=== PATIENT | male | born 1960 | race African-American/Black ===

== ENCOUNTER 2017-07-24 12:58 | Inpatient (IN) | payer OTHER ==
[2017-07-24] MEDS ORDERED: Nitroglycerin 2% Ointment 1 INCH/1 GM Packet ONE (13:15)
[2017-07-24] MEDS ORDERED: Fentanyl 100 MCG/2 ML VIAL ONE (13:15)
[2017-07-24 14:42] LABS: Troponin I 0.631 ng/mL (< 0.028)
--- NOTE | 2017-07-24 15:11 | HP ---
DATE OF SERVICE: 07/24/2017 HISTORY OF PRESENT ILLNESS: Mr. Campos is a 56 years old black man. Last night, he started experim enting some palpitation. A few minutes later, he had chest pain which was located in the retrosterna l area with no radiation, was accompanied by shortness of breath and also some diaphoresis. The ches t pain persisted until this morning and he woke up without it, sometimes later he started experimenti ng chest pain again. The chest pain this time lasted about 2 hours until he came to the ER and was g iven nitroglycerin to which it responded. He denies any previous history of heart disease, denies hy pertension, denies diabetes. As a matter of fact, he does not have significant past medical history. PAST SURGICAL HISTORY: Unremarkable. ALLERGIES: He does not have any known allergy. SOCIAL HISTORY: He is an active smoker and he claims that he has been smoking 1 pack of cigarette a day for the last few years. He denies ETOH abuse. He denies drug abuse. FAMILY HISTORY: Reviewed and is not contributory. HOME MEDICATIONS: Not available for identification at this time; however, he claims that he was takmaría clark some medications for schizophrenia at home. REVIEW OF SYSTEMS: CONSTITUTIONAL: He denies any fever, denies any weakness. HEENT: No headache, no ocular pain, no sore throat, no rhinorrhea, no earache, no epistaxis. NECK: No neck pain, no neck stiffness. CARDIOVASCULAR: Admits to shortness of breath, chest pain, and palpitation as mentioned earlier. PULMONARY: Dry cough on and off. GASTROINTESTINAL: No nausea, no vomiting, no diarrhea, no abdominal pain. GENITOURINARY: No dysuria, no hematuria. ENDOCRINOLOGY: No heat or cold intolerance. No polyuria, polydipsia or polyphagia. MUSCULOSKELETAL: No arthritis, no myalgia. ALLERGIES: No hayfever. HEMATOLOGY: No abnormal bleeding, no ecchymosis. LYMPHATICS: No palpable lymphadenopathy, no painful lymphadenopathy. SKIN: No rash, no itching. NEUROLOGICAL: No seizure. PSYCHIATRIC: As mentioned earlier, he does have a history of schizophrenia. PHYSICAL EXAMINATION: GENERAL: At the current time, he is alert, oriented, in no distress. LATEST VITAL SIGNS: Show a temperature of 100, pulse rate 90, respiratory rate 18 and blood pressure 129/88. HEENT: His head is normocephalic and atraumatic. Both his pupils are equal, reactive. Ears and nos e normal. Oral mucosa is moist. Pharyngeal area is clear with no exudate, no hyperemia. NECK: Supple. There is no distention of the jugular vein. No lymphadenopathy felt. Thyroid gland not palpable. There is no carotid bruit. CHEST: Symmetrical with regular S1, S2. LUNGS: Clear. ABDOMEN: Soft. Bowel sounds are heard. Could not appreciate any organomegaly. LIMBS: Show no edema. NEUROLOGIC: He moves all extremities. LABORATORY DATA: Troponin from an out of facility where he presented earlier was noticed to be 45. Repeat troponin is in progress. ASSESSMENT AND PLAN: This is 56 years old black man with no significant past medical history; howeve r, heavy smoker, schizophrenia, who came in with chest pain and palpitation, found to have an elevate d troponin consistent with non-ST elevation myocardial infarction. Cardiology consult was called. T he patient is being admitted, treated for non-ST elevation myocardial infarction. He is being admitt ed to telemetry.
[2017-07-24] MEDS ORDERED: Ondansetron ODT 4 MG TAB SL PRN (17:02)
[2017-07-24] MEDS ORDERED: Ondansetron HCl/PF 4 MG/2 ML Vial IVP PRN ×2 (17:02→17:22)
[2017-07-24 17:18] VITALS: BMI 39.4
[2017-07-24 17:19] LABS: Critical Call Chem Troponin I RESULT DECREASING; Troponin I 0.533 ng/mL (< 0.028)
[2017-07-24] MEDS ORDERED: Morphine 4 MG/ML VIAL SLOW IVP PRN (17:22)
[2017-07-24] MEDS ORDERED: Nitroglycerin 0.4 MG TAB (25 Tab Bottle) PO PRN (17:22)
[2017-07-24 17:38] LABS: #Monocytes 0.7 thou/uL (0.11-0.59); #Neutrophils 7.5 thou/uL (1.40-6.50); %Basophils 0.2 % (0.0-1.0); %Eosinophils 0.2 % (0.0-10.0); %Monocytes 7.3 % (0.0-10.0); %Neutrophils 81.3 % (42.0-75.0); Hemoglobin 16.8 g/dL (14.0-18.0); Mean Corpuscular HGB CONC 33.5 g/dL (32.0-36.0); Mean Corpuscular Hemoglobin 28.1 pg (27.0-31.0); Mean Corpuscular Volume 83.7 fl (80.0-94.0); Mean Platelet Volume 6.5 fL (7.4-10.4); Platelet Count 225 thou/uL (130-400); RBC Distribution Width 13.1 % (11.5-14.5); Red Blood Cell (RBC) Count 5.99 mill/uL (4.70-6.10); White Blood Cell (WBC) Count 9.2 thou/uL (4.8-10.8)
[2017-07-24 18:00] LABS: Anion Gap 9 mmol/L (10-20); BUN (Urea Nitrogen) 12 mg/dL (8.4-25.7); Calc. Creatinine Clearance 140 mL/min (70-130); Calcium 8.8 mg/dL (7.8-10.44); Carbon Dioxide 31 mmol/L (22-29); Chloride 100 mmol/L (98-107); Estimated GFR-MDRD Greater than 90; Glucose 100 mg/dL (70-105); Potassium 3.8 mmol/L (3.5-5.1); Sodium 136 mmol/L (136-145)
[2017-07-24] MEDS: Atorvastatin Calcium 40 MG TAB PO SCH (20:53)
[2017-07-24] MEDS: Metoprolol Tartrate 25 MG TAB PO SCH (20:54)
[2017-07-24] MEDS: Enoxaparin Sodium 120 MG/0.8 ML SYRINGE SC SCH (20:56)
[2017-07-24] MEDS ORDERED: Acetaminophen 325 MG TAB PO PRN (22:08)
[2017-07-24] MEDS ORDERED: Perphenazine 2 MG TAB PO SCH (23:45)
[2017-07-24] MEDS ORDERED: traZODone HCl 50 MG TAB PO SCH (23:45)
[2017-07-25 05:39] LABS: Cardiac Risk 5.5 (Less than 4.5)
--- NOTE | 2017-07-25 12:43 | PDOC.PN ---
- Subjective Encounter Start Date: 07/25/17 Encounter Start Time: 14:28 cc: chest pain sub: pt is chets pain free, deneis dyspnea - Objective Vital Signs & Weight: Vital Signs (12 hours) Temp Pulse Resp BP BP Pulse Ox 07/25/17 10:50 99.4 F 86 19 115/66 96 07/25/17 08:19 99.8 F H 93 16 128/62 128/62 96 07/25/17 05:29 94 L 07/25/17 04:00 99.2 F 95 20 107/64 100 Weight Weight 267 lb 6.4 oz I&O: 07/24/17 07/25/17 07/26/17 06:59 06:59 06:59 Intake Total 1080 Output Total 280 Balance 800 Result Diagrams: 07/24/17 17:31 07/24/17 17:31 Phys Exam - Physical Examination Constitutional: NAD HEENT: moist MMs Neck: no JVD Respiratory: no wheezing, no rales, no rhonchi, clear to auscultation bilateral Cardiovascular: RRR, no significant murmur, no rub no gallop Gastrointestinal: soft, non-tender Musculoskeletal: no edema Neurological: non-focal, moves all 4 limbs Psychiatric: normal affect Skin: no rash Dx/Plan - Plan Pt is 56 yrs old male now admitted to hospital due to chest pain 1. Chest pain + NSTEMI: Will consult cardio to evaluate patient Continue aspirin and statin On lovenox 120mg subq q12hrs PRN pain meds Monitor respiratory status closely 2. H/O Schizophrenia: Continue home meds. 3. GI prophylaxis: PPI Case d/w pt & RN
[2017-07-25] MEDS: Metoprolol Tartrate 25 MG TAB PO SCH ×2 (13:12→21:48)
[2017-07-25] MEDS: Perphenazine 2 MG TAB PO SCH ×3 (13:12→21:49)
[2017-07-25] MEDS: Enoxaparin Sodium 120 MG/0.8 ML SYRINGE SC SCH (13:12)
[2017-07-25] MEDS: Aspirin 325 MG TAB PO SCH (14:07)
[2017-07-25] MEDS: Escitalopram Oxalate 20 mg Tablet PO SCH (14:07)
[2017-07-25] MEDS ORDERED: Communication Order-Pharmacy FS SCH (21:00)
[2017-07-25] MEDS: traZODone HCl 50 MG TAB PO SCH (21:48)
[2017-07-25] MEDS: Atorvastatin Calcium 40 MG TAB PO SCH (21:49)
--- NOTE | 2017-07-26 00:20 | CON ---
DATE OF CONSULTATION: 07/25/2017 HISTORY: Antwon Campos is a 56-year-old black male with history of anxiety, depression, bipolar and schizophrenia. He also possibly has history of seizure disorder. He apparently "fell out" and then woke up with chest pain. He went to the emergency room in [place] with his pain accompanied by shortness of breath, some diaphoresis. He was given sublingual nitroglycerin and the pain resolved. He denies have any recurrence of the pain since then. He was transferred here for further evaluation. PAST MEDICAL HISTORY: Denies history of hypertension, diabetes, or hypercholesterolemia, history of seizure disorder. MEDICATIONS: Perphenazine 8 mg t.i.d., trazodone 50 at bedtime, escitalopram 20 mg q.a.m. ALLERGIES: None. OPERATIONS: None. SOCIAL HISTORY: He smokes 1 pack per day. Does not drink or use drugs. FAMILY HISTORY: Negative for coronary artery disease. REVIEW OF SYSTEMS: Twelve point review of systems otherwise unremarkable. PHYSICAL EXAMINATION: VITAL SIGNS: 126/71, pulse of 80. HEENT: PERRL. NECK: Supple. LUNGS: Chest is clear. CARDIAC: S1, S2 normal, without any S3, S4 or murmurs. Carotid upstrokes normal, without bruits. ABDOMEN: Normal bowel sounds, without tenderness, organomegaly. EXTREMITIES: Revealed no clubbing, cyanosis, or edema. NEUROLOGIC: Grossly intact. LABORATORY AND X-RAY FINDINGS: EKG revealed normal sinus rhythm and is unremarkable. On the monitor, though he appears to have inverted T waves and another EKG will be ordered. Hemoglobin 16.8, hematocrit 50.1, white count 9200 , platelets 225,000. Sodium 136, potassium 3.8, chloride 100, carbon dioxide 31 , BUN 12, creatinine 1.01. Troponin I 0.631, BNP 140.5. Cholesterol 133, triglycerides 138, HDL 24, LDL 81. IMPRESSION: 1. Rly-RE-[id number] elevation myocardial infarction. 2. Smoker. 3. Elevated cholesterol in someone with coronary artery disease. 4. bipolar disorder. 5. Schizophrenia. 6. Seizure disorder. PLAN: The situation was discussed with the patient. Recommend he undergo cardiac catheterization. Risks of this have been discussed including , myocardial infarction, dye reaction, vascular injury, CVA, transfusion, limb loss, renal loss, etc. Also, risk of intervention with PTCA and stent placement were discussed including , myocardial infarction, emergent CABG, restenosis, stent thrombosis, vessel perforation, etc. He complains about bleeding gums and therefore, I would only place a bare metal stent. I am also somewhat concerned about his compliance. ANGI
[2017-07-26 06:01] LABS: Anion Gap 9 mmol/L (10-20); BUN (Urea Nitrogen) 16 mg/dL (8.4-25.7); Calc. Creatinine Clearance 175 mL/min (70-130); Calcium 8.9 mg/dL (7.8-10.44); Carbon Dioxide 25 mmol/L (22-29); Chloride 109 mmol/L (98-107); Estimated GFR-MDRD Greater than 90; Glucose 110 mg/dL (70-105); Potassium 4.3 mmol/L (3.5-5.1); Sodium 139 mmol/L (136-145)
[2017-07-26 06:09] LABS: Band 1 % (5-11); Eosinophils 1 % (0-10); Hemoglobin 15.4 g/dL (14.0-18.0); Lymphocytes 25 % (21-51); MDiff Complete? YES; Mean Corpuscular HGB CONC 32.6 g/dL (32.0-36.0); Mean Corpuscular Hemoglobin 27.5 pg (27.0-31.0); Mean Corpuscular Volume 84.2 fl (80.0-94.0); Monocytes 18 % (0-10); Neutrophil 51 % (42-75); PLT Morphology Comment Appears Adequate; Platelet Count 206 thou/uL (130-400); RBC Morphology Normal; Reactive Lymphocytes 4 % (0-10); White Blood Cell (WBC) Count 5.3 thou/uL (4.8-10.8)
[2017-07-26] MEDS: Perphenazine 2 MG TAB PO SCH ×3 (06:22→20:43)
[2017-07-26] MEDS: Escitalopram Oxalate 20 mg Tablet PO SCH (06:24)
[2017-07-26] MEDS: Aspirin 325 MG TAB PO SCH (06:24)
[2017-07-26] MEDS: Metoprolol Tartrate 25 MG TAB PO SCH ×2 (06:25→20:36)
[2017-07-26] MEDS ORDERED: Heparin 10,000 UNITS/1 ML VIAL ONE (06:33)
[2017-07-26] MEDS ORDERED: Lidocaine 1% (PF) 30 ML VIAL ONE (06:41)
[2017-07-26] MEDS ORDERED: Midazolam HCl 2 mg/2 ml Vial ONE (07:04)
[2017-07-26] MEDS ORDERED: Fentanyl 100 MCG/2 ML VIAL ONE (07:05)
[2017-07-26] MEDS ORDERED: Nitroglycerin 100MG/250ML BOT 250 ML ONE (07:28)
[2017-07-26] MEDS ORDERED: Bivalirudin 250 MG VIAL ONE (07:28)
[2017-07-26] MEDS ORDERED: Clopidogrel Bisulfate 300 MG TAB ONE (07:28)
[2017-07-26] MEDS ORDERED: Iopamidol 370 76% 100 ML VIAL ONE (08:49)
[2017-07-26] MEDS ORDERED: Iopamidol 370 76% 50 ML VIAL FS ONE (08:49)
[2017-07-26] MEDS: Sodium Chloride 0.9% 1,000 ML IV SCH ×2 (09:09→15:28)
--- NOTE | 2017-07-26 16:26 | PDOC.PN ---
- Subjective Encounter Start Date: 07/26/17 Encounter Start Time: 15:00 Subjective: pt up in bed no complains - Objective Vital Signs & Weight: Vital Signs (12 hours) Temp Pulse Resp BP Pulse Ox 07/26/17 15:41 99.1 F 68 18 121/60 96 07/26/17 11:25 97.9 F 69 18 127/75 97 Weight Weight 267 lb 6.4 oz I&O: 07/25/17 07/26/17 07/27/17 06:59 06:59 06:59 Intake Total 1080 750 624 Output Total 280 400 875 Balance 800 350 -251 Result Diagrams: 07/26/17 05:15 07/26/17 05:15 Phys Exam - Physical Examination HEENT: PERRLA Neck: no nodes, no JVD Respiratory: no wheezing, no rales Cardiovascular: RRR, no significant murmur Gastrointestinal: soft, non-tender Musculoskeletal: no edema, pulses present (right groin site intact) Neurological: non-focal, normal sensation Lymphatic: no nodes Psychiatric: normal affect Dx/Plan - Plan * . Pt is 56 yrs old male now admitted to hospital due to chest pain 1. Chest pain + NSTEMI: pt underwent cardiac cath with bare metal stent to LAD Continue aspirin/plavix and statin 2. H/O Schizophrenia: Continue home meds. 3. GI prophylaxis: PPI pt will be discharged in am if ok with cardiology Review of Systems - Review of Systems Eyes: negative: Pain, Vision Change, Conjunctivae Inflammation, Eyelid Inflammation, Redness, Other ENT: negative: Ear Pain, Ear Discharge, Nose Pain, Nose Discharge, Nose Congestion, Mouth Pain, Mouth Swelling, Throat Pain, Throat Swelling, Other Respiratory: negative: Cough, Dry, Shortness of Breath, Hemoptysis, SOB with Excertion, Pleuritic Pain, Sputum, Wheezing Cardiovascular: negative: chest pain, palpitations, orthopnea, paroxysmal nocturnal dyspnea, edema, light headedness, other Gastrointestinal: negative: Nausea, Vomiting, Abdominal Pain, Diarrhea, Constipation, Melena, Hematochezia, Other - Medications/Allergies Allergies/Adverse Reactions: Allergies Allergy/AdvReac Type Severity Reaction Status Date / Time No Known Drug Allergies Allergy Verified 07/24/17 17:02 Medications: Current Medications Acetaminophen (Tylenol) 650 mg PO Q6H PRN PRN Reason: Fever > 101 Last Admin: 07/24/17 22:41 Dose: 650 mg Aspirin (Aspirin) 325 mg PO DAILY [facility] Last Admin: 07/26/17 06:24 Dose: 325 mg Atorvastatin Calcium (Lipitor) 20 mg PO HS [facility] Clopidogrel Bisulfate (Plavix) 75 mg PO DAILY [facility] Escitalopram Oxalate (Lexapro) 20 mg PO QAM [facility] Last Admin: 07/26/17 06:24 Dose: 20 mg Metoprolol Tartrate (Lopressor) 6.25 mg PO BID [facility] Last Admin: 07/26/17 06:25 Dose: 6.25 mg Morphine Sulfate (Morphine) 2 mg SLOW IVP Q4H PRN PRN Reason: Chest Pain Last Admin: 07/24/17 17:53 Dose: 2 mg Nitroglycerin (Nitrostat) 0.4 mg PO Q5MIN PRN PRN Reason: Chest Pain Last Admin: 07/24/17 19:19 Dose: 0.4 mg Ondansetron HCl (Zofran) 4 mg IVP Q6H PRN PRN Reason: Nausea/Vomiting Perphenazine (Trilafon) 8 mg PO TID [facility] Last Admin: 07/26/17 06:22 Dose: 8 mg Sodium Chloride (Flush - Normal Saline) 10 ml IVF Q12HR [facility] Last Admin: 07/26/17 15:28 Dose: Not Given Sodium Chloride (Flush - Normal Saline) 10 ml IVF PRN PRN PRN Reason: Saline Flush Trazodone HCl (Desyrel) 50 mg PO HS [facility] Last Admin: 07/25/17 21:48 Dose: 50 mg
[2017-07-26] MEDS: traZODone HCl 50 MG TAB PO SCH (20:39)
[2017-07-26] MEDS ORDERED: Atorvastatin Calcium 20 MG TAB PO SCH (21:00)
[2017-07-27 06:06] LABS: #Lymphocytes 1.3 thou/uL (1.20-3.40); #Monocytes 0.7 thou/uL (0.11-0.59); #Neutrophils 3.9 thou/uL (1.40-6.50); %Basophils 0.5 % (0.0-1.0); %Eosinophils 0.8 % (0.0-10.0); %Lymphocytes 21.8 % (21.0-51.0); %Monocytes 11.1 % (0.0-10.0); %Neutrophils 65.7 % (42.0-75.0); Hemoglobin 15.8 g/dL (14.0-18.0); Mean Corpuscular HGB CONC 33.2 g/dL (32.0-36.0); Mean Corpuscular Hemoglobin 27.4 pg (27.0-31.0); Mean Corpuscular Volume 82.7 fl (80.0-94.0); Mean Platelet Volume 7.3 fL (7.4-10.4); Platelet Count 225 thou/uL (130-400); RBC Distribution Width 12.9 % (11.5-14.5); Red Blood Cell (RBC) Count 5.74 mill/uL (4.70-6.10)
[2017-07-27 06:30] LABS: ALT (SGPT) 26 U/L (8-55); AST (SGOT) 25 U/L (5-34); Albumin 3.6 g/dL (3.5-5.0); Alkaline Phosphatase 110 U/L (40-150); Anion Gap 9 mmol/L (10-20); BUN (Urea Nitrogen) 13 mg/dL (8.4-25.7); Bilirubin, Total 0.8 mg/dL (0.2-1.2); Calc. Creatinine Clearance 171 mL/min (70-130); Carbon Dioxide 26 mmol/L (22-29); Chloride 106 mmol/L (98-107); Estimated GFR-MDRD Greater than 90; Globulin 3.5 g/dL (2.4-3.5); Glucose 106 mg/dL (70-105); Potassium 4.1 mmol/L (3.5-5.1); Protein, Total 7.1 g/dL (6.0-8.3); Sodium 137 mmol/L (136-145)
--- NOTE | 2017-07-27 08:01 | EKG ---
Test Reason : POST STENT Blood Pressure : / mmHG Vent. Rate : 071 BPM Atrial Rate : 071 BPM P-R Int : 156 ms QRS Dur : 080 ms QT Int : 410 ms P-R-T Axes : 068 096 033 degrees QTc Int : 445 ms Normal sinus rhythm Rightward axis Borderline ECG When compared with ECG of 24-JUL-2017 17:45, (Unconfirmed) Premature supraventricular complexes are no longer Present Confirmed by TANGELA MUELLER ([id number]) on 07/27/2017 8:01:25 AM Referred By: GHULAM Confirmed By:TANGELA MUELLER
[2017-07-27] MEDS ORDERED: Clopidogrel Bisulfate 75 MG TAB PO SCH (09:00)
[2017-07-27] MEDS: Metoprolol Tartrate 25 MG TAB PO SCH (10:03)
[2017-07-27] MEDS: Escitalopram Oxalate 20 mg Tablet PO SCH (10:03)
[2017-07-27] MEDS: Aspirin 325 MG TAB PO SCH (10:05)
[2017-07-27] MEDS: Perphenazine 2 MG TAB PO SCH ×2 (10:05→15:58)
--- NOTE | 2017-07-27 14:20 | PDOC.PN ---
- Subjective Encounter Start Date: 07/27/17 Encounter Start Time: 10:00 Subjective: pt up in bed no complains - Objective Vital Signs & Weight: Vital Signs (12 hours) Temp Pulse Resp BP BP Pulse Ox 07/27/17 12:20 98.2 F 65 16 131/84 96 07/27/17 08:05 98.3 F 65 16 118/72 97 07/27/17 07:40 98.3 F 60 18 118/72 95 07/27/17 07:35 98.3 F 65 16 95 07/27/17 04:00 98.1 F 70 18 113/75 96 Weight Weight 264 lb 6.4 oz I&O: 07/26/17 07/27/17 07/28/17 06:59 06:59 06:59 Intake Total 750 1324 Output Total 400 1475 Balance 350 -151 Result Diagrams: 07/27/17 05:34 07/27/17 05:34 Phys Exam - Physical Examination HEENT: PERRLA, moist MMs Neck: no nodes, no JVD Respiratory: no wheezing, no rales Cardiovascular: RRR, no significant murmur right groin appears intact Gastrointestinal: soft, non-tender Musculoskeletal: no edema Neurological: non-focal Dx/Plan - Plan * . Pt is 56 yrs old male now admitted to hospital due to chest pain 1. Chest pain + NSTEMI: pt underwent cardiac cath with bare metal stent to LAD Continue aspirin/plavix and statin 2. H/O Schizophrenia: Continue home meds. 3. GI prophylaxis: PPI pt will be discharged in am if ok with cardiology Review of Systems - Review of Systems Constitutional: negative: fever, chills, sweats, weakness, malaise, other Eyes: negative: Pain, Vision Change, Conjunctivae Inflammation, Eyelid Inflammation, Redness, Other ENT: negative: Ear Pain, Ear Discharge, Nose Pain, Nose Discharge, Nose Congestion, Mouth Pain, Mouth Swelling, Throat Pain, Throat Swelling, Other Respiratory: negative: Cough, Dry, Shortness of Breath, Hemoptysis, SOB with Excertion, Pleuritic Pain, Sputum, Wheezing Cardiovascular: negative: chest pain, palpitations, orthopnea, paroxysmal nocturnal dyspnea, edema, light headedness, other Gastrointestinal: negative: Nausea, Vomiting, Abdominal Pain, Diarrhea, Constipation, Melena, Hematochezia, Other Genitourinary: negative: Dysuria, Frequency, Incontinence, Hematuria, Retention , Other - Medications/Allergies Allergies/Adverse Reactions: Allergies Allergy/AdvReac Type Severity Reaction Status Date / Time No Known Drug Allergies Allergy Verified 07/24/17 17:02 Medications: Current Medications Acetaminophen (Tylenol) 650 mg PO Q6H PRN PRN Reason: Fever > 101 Last Admin: 07/24/17 22:41 Dose: 650 mg Aspirin (Aspirin) [address] [facility] Last Admin: 07/27/17 10:05 Dose: 325 mg Atorvastatin Calcium (Lipitor) [address] [facility] Last Admin: 07/26/17 20:36 Dose: 20 mg Clopidogrel Bisulfate (Plavix) [address] [facility] Last Admin: 07/27/17 10:05 Dose: 75 mg Escitalopram Oxalate (Lexapro) [address] [facility] Last Admin: 07/27/17 10:03 Dose: 20 mg Metoprolol Tartrate (Lopressor) 6.[address] [facility] Last Admin: 07/27/17 10:03 Dose: 6.25 mg Morphine Sulfate (Morphine) 2 mg SLOW IVP Q4H PRN PRN Reason: Chest Pain Last Admin: 07/24/17 17:53 Dose: 2 mg Nitroglycerin (Nitrostat) 0.4 mg PO Q5MIN PRN PRN Reason: Chest Pain Last Admin: 07/24/17 19:19 Dose: 0.4 mg Ondansetron HCl (Zofran) 4 mg IVP Q6H PRN PRN Reason: Nausea/Vomiting Perphenazine (Trilafon) [address] [facility] Last Admin: 07/27/17 10:05 Dose: 8 mg Sodium Chloride (Flush - Normal Saline) [address] [facility] Last Admin: 07/27/17 10:05 Dose: 10 ml Sodium Chloride (Flush - Normal Saline) 10 ml IVF PRN PRN PRN Reason: Saline Flush Trazodone HCl (Desyrel) [address] [facility] Last Admin: 07/26/17 20:39 Dose: 50 mg
[2017-07-27 16:18] VITALS: BP 120/63; TEMP 98.3
--- NOTE | 2017-07-28 00:31 | DIS ---
DATE OF ADMISSION: 07/24/2017 DATE OF DISCHARGE: 07/27/2017 DISCHARGE DIAGNOSIS: 1. Non ST elevation myocardial infarction. 2. Hypertension. 3. Hyperlipidemia. 4. Bipolar disorder. HOSPITAL COURSE: The patient is a 56-year-old male who initially presented to the hospital with comp laints of some chest pain with an elevated troponins of 0.5. The patient had some nonspecific EKG pa tterns. The patient was seen by Cardiology initially and was put on [facility] subcu for NSTEMI protoco l. The patient underwent a cardiac catheterization and had bare metal stent placed to the LAD. The patient was monitored overnight and was discharged in the morning. DISCHARGE MEDICATIONS: As the following aspirin 325 daily, Plavix 75 mg daily, Lipitor 20 mg daily, metoprolol 6.25 p.o. b.i.d., trazodone 50 mg p.o. at bedtime, citalopram 20 mg q.a.m., Perphenazine 8 mg p.o. t.i.d. The patient was asked to not have exercising in the next couple of weeks or heavy li fting. The patient will follow up with Cardiology and PCP as outpatient.
--- NOTE | 2017-07-28 06:23 | EKG ---
Test Reason : Blood Pressure : / mmHG Vent. Rate : 058 BPM Atrial Rate : 058 BPM P-R Int : 140 ms QRS Dur : 078 ms QT Int : 428 ms P-R-T Axes : 052 078 027 degrees QTc Int : 420 ms Sinus bradycardia with sinus arrhythmia Otherwise normal ECG When compared with ECG of 26-JUL-2017 08:56, No significant change was found Confirmed by TANGELA MUELLER ([id number]) on 07/28/2017 6:12:54 AM Referred By: GHULAM Confirmed By:TANGELA MUELLER
== END 2017-07-27 18:26 | disposition home or self-care (01) | DRG 249 ==
LOC: ERS 12:58 → 2NO 16:31 → OBSVTOIN 16:31
PROVIDERS: ADMIT Hospitalist; ATTEND Hospitalist
PROC: 02703DZ Dilation of Coronary Artery, One Artery with Intraluminal Device, Percutaneous Approach (ICD-10-PCS; principal; 2017-07-26)
DX: I21.4 Non-ST elevation (NSTEMI) myocardial infarction (principal); F20.9 Schizophrenia, unspecified; E78.5 Hyperlipidemia, unspecified; I10 Essential (primary) hypertension; F31.9 Bipolar disorder, unspecified; I25.10 Atherosclerotic heart disease of native coronary artery without angina pectoris; F17.210 Nicotine dependence, cigarettes, uncomplicated; Z79.82 Long term (current) use of aspirin
CPT/HCPCS: 36415; 80048; 80053; 80061; 83880; 85025; 85347; 92928; 93005; 93010; 93458; 93798; 94760; 96374; 99152; 99153; A4216; C1769; C1876; C1887; J0583; J1644; J1650; J2001; J2250; J2270; J3010; Q0175

== ENCOUNTER 2020-11-29 19:30 | Outpatient (CLI) | payer OTHER | END 2020-11-29 19:31 | disposition home or self-care (01) | LOC: SLEEPLAB 19:30 | PROVIDERS: ATTEND Nurse Practitioner Family | DX: G47.33 Obstructive sleep apnea (adult) (pediatric) (principal); R53.83 Other fatigue; K21.9 Gastro-esophageal reflux disease without esophagitis; R06.83 Snoring; I10 Essential (primary) hypertension; I25.10 Atherosclerotic heart disease of native coronary artery without angina pectoris; R56.9 Unspecified convulsions; I21.4 Non-ST elevation (NSTEMI) myocardial infarction; F31.9 Bipolar disorder, unspecified; E66.9 Obesity, unspecified; Z68.41 Body mass index [BMI] 40.0-44.9, adult | CPT/HCPCS: 95811 ==

== ENCOUNTER 2024-05-10 10:47 | Day surgery (SDC) | payer OTHER ==
[2024-05-09 12:16] VITALS: BMI 31.0
[~2024-05-10 10:47] MED LIST: Pilocarpine 1% Ophth Drops 15 ML BOT EA EYE SCH; Proparacaine 0.5% Opth 15 ML BOT EA EYE SCH
[2024-05-10] MEDS ORDERED: Proparacaine 0.5% Opth 15 ML BOT ONE (11:18)
== END 2024-05-10 13:35 | disposition home or self-care (01) ==
LOC: SDC 10:47
PROVIDERS: ATTEND Ophthalmology
PROC: 089D3ZZ Drainage of Left Iris, Percutaneous Approach (ICD-10-PCS; principal; 2024-05-10)
PROC: 089C3ZZ Drainage of Right Iris, Percutaneous Approach (ICD-10-PCS; principal; 2024-05-10)
DX: E11.39 Type 2 diabetes mellitus with other diabetic ophthalmic complication (principal); H40.20X0 Unspecified primary angle-closure glaucoma, stage unspecified; I10 Essential (primary) hypertension; I25.10 Atherosclerotic heart disease of native coronary artery without angina pectoris; E78.5 Hyperlipidemia, unspecified; J44.9 Chronic obstructive pulmonary disease, unspecified; F17.200 Nicotine dependence, unspecified, uncomplicated; Z95.5 Presence of coronary angioplasty implant and graft; Z79.82 Long term (current) use of aspirin; Z79.02 Long term (current) use of antithrombotics/antiplatelets